=== PATIENT | female | born 1990 | race Caucasian/White ===

== ENCOUNTER 2019-06-03 11:18 | Emergency (ER) | payer MEDICARE, OTHER ==
[~2019-06-03] VITALS: Ht 154.9 cm; Wt 77.1 kg
[~2019-06-03 11:18] MED LIST: ACET500 PO; ALBU90OI INH; AMOX500 PO; ARIP10 PO; BCP; BUPR100 PO; CEPH500 PO; CLON.1 PO; CLON.2; CLON.3 PO; CLOT1TC TOP; CODACE30 PO; CYCL10 PO; DIPH25; DOCU100 PO; ESCI20; Effexor PO; FERGLU300 PO; FLUC150A PO; Flagyl500 MG PO; Flomax0.4 MG PO; HYDACE5 PO; HYDGUAL120 PO; HYDHCL10; HYDPAM25; HYDPAM25 PO; HYDPAM50 PO; IBUP800 PO; LAMO100 PO; LAMO25; LAMO25 PO; LEVFLO500 PO; LITH300C; LITH300C PO; LITH300CA; Lamictal PO; METO5A; MULVITMINE PO; Motrin600 MG PO; NAPR500 PO; NAPR550 PO; NEOCOLOTSU OT; NEOPOLHCSU LEFTEAR; OMEP20ER PO; OXYB5 PO; PHENA200 PO; POLY17UD PO; PRED10 PO; Percocet 5-3251 EACH PO; Pyridium100 MG PO; RANI150 PO; RISP1; RISP1 PO; RXCODACET PO; RXCYCL10 PO; RXNAPNA550 PO; SERT50 PO; SULTRIDS PO; TRAM50 PO; TRAZ150T57 PO; TRAZ50; TRIM100 PO; Ultram50 MG PO; VENL150ER PO; VENL25; VENL25 PO; VENL75ER; [UNRECOGNIZED DRUG - CODE] PO; [UNRECOGNIZED DRUG - OTHER]; [UNRECOGNIZED DRUG - REMARK]; [UNRECOGNIZED DRUG - REMARK]; [UNRECOGNIZED DRUG - REMARK]
[2019-06-03] MEDS ORDERED: Bactrim Ds Tab1 EACH PO (11:42)
== END 2019-06-03 11:49 | disposition home or self-care (01) ==
LOC: ER 11:18
DX: H60.11 Cellulitis of right external ear (principal); H60.01 Abscess of right external ear; Z88.1 Allergy status to other antibiotic agents; Z88.8 Allergy status to other drugs, medicaments and biological substances; Z88.0 Allergy status to penicillin; Z79.899 Other long term (current) drug therapy; F31.9 Bipolar disorder, unspecified; F17.200 Nicotine dependence, unspecified, uncomplicated
CPT/HCPCS: 99282

== ENCOUNTER 2019-11-19 17:17 | Emergency (ER) | payer MEDICARE, OTHER ==
[~2019-11-19] VITALS: Ht 154.9 cm; Wt 79.4 kg
[~2019-11-19 17:17] MED LIST changes: +Bactrim Ds Tab1 EACH PO
[2019-11-19 17:40] LABS: Source, Urine Clean Catch
[2019-11-19] MEDS ORDERED: VENL75ER PO (17:41)
[2019-11-19] MEDS ORDERED: CLON.3 (17:42)
[2019-11-19] MEDS ORDERED: LAMO100 PO (17:42)
[2019-11-19] MEDS ORDERED: HYDHCL25 (17:43)
[2019-11-19 17:50] LABS: BASOPHILS ABSOLUTE AUTO 0.07 K/mm3 (0.00-0.23); BASOPHILS PERCENT AUTO 1 % (0-2); EOSINOPHILS ABSOLUTE AUTO 0.28 K/mm3 (0.00-0.68); EOSINOPHILS PERCENT AUTO 2 % (0-6); Hematocrit 44.2 % (33.0-51.0); Hemoglobin 14.4 g/dL (11.5-16.0); IMMATURE GRAN ABSOLUTE AUTO 0.05 K/mm3 (0.00-0.10); IMMATURE GRAN PERCENT AUTO 0 % (0-1); LYMPHOCYTES ABSOLUTE AUTO 3.27 K/mm3 (0.84-5.20); LYMPHOCYTES PERCENT AUTO 25 % (21-46); MONOCYTES ABSOLUTE AUTO 0.68 K/mm3 (0.16-1.47); MONOCYTES PERCENT AUTO 5 % (4-13); Mean Corpuscular HGB 29.1 pg (26.0-34.0); Mean Corpuscular HGB Conc 32.6 g/dL (31.5-36.5); Mean Corpuscular Volume 89 fL (80-100); Mean Platelet Volume 9.8 fL (9.1-12.4); NEUTROPHILS ABSOLUTE AUTO 8.81 K/mm3 (1.96-9.15); NEUTROPHILS PERCENT AUTO 67 % (41-73); Platelet Count 384 K/mm3 (150-400); Red Blood Cell Count 4.95 M/mm3 (3.80-5.20); White Blood Cell Count 13.16 K/mm3 (4.00-11.30)
[2019-11-19 17:59] LABS: Bilirubin, Urine Neg (Neg); Blood, Urine 1+ (Neg); Glucose Qualitative, Urine Neg (Neg); Ketones, Urine Neg (Neg); Leukocyte Esterase, Urine 2+ (Neg); Nitrite, Urine Neg (Neg); Protein, Urine Neg (Neg); Urobilinogen, Urine NORM (Normal)
[2019-11-19 18:08] LABS: Alanine Aminotransfer (ALT/SGP 35 U/L (12-78); Albumin, Blood 4.1 g/dL (3.4-5.0); Alk Phos 122 U/L (50-136); Anion Gap 5 mmol/L (6-16); Aspartate Aminotrans (AST/SGOT 15 U/L (12-37); Bilirubin, Total 0.4 mg/dL (0.1-1.0); Blood Urea Nitrogen 6 mg/dL (8-24); Bun/Creatinine Ratio 11.9 (12.0-20.0); CO2, Blood 26 mmol/L (21-32); Calcium, Blood 9.3 mg/dL (8.5-10.1); Chloride, Blood 105 mmol/L (98-108); Creatinine, Blood 0.51 mg/dL (0.40-1.00); Globulin, Blood 4.1 g/dL (2.2-4.0); Glomerular Filtration Rate >60 (60-); Glucose, Blood 94 mg/dL (70-99); Potassium, Blood 3.7 mmol/L (3.5-5.5); Sodium, Blood 136 mmol/L (136-145); Total Protein, Blood 8.2 g/dL (6.4-8.2)
[2019-11-19 18:15] LABS: Appearance, Urine Hazy (Clear); Color, Urine Pale Yellow (P-Yellow)
[2019-11-19 18:16] LABS: Red Blood Cells, Urine 0-2 /hpf (0-2); Squamous Epithelial Cells Mod /hpf (Few)
[2019-11-19 18:17] LABS: Bacteria Few /hpf
== END 2019-11-19 21:12 | disposition home or self-care (01) ==
LOC: ER 17:17
PROVIDERS: Physician Assistant
DX: T83.9XXA Unspecified complication of genitourinary prosthetic device, implant and graft, initial encounter (principal); N75.0 Cyst of Bartholin's gland; N83.209 Unspecified ovarian cyst, unspecified side; F31.9 Bipolar disorder, unspecified; F41.9 Anxiety disorder, unspecified; F17.290 Nicotine dependence, other tobacco product, uncomplicated; Z88.0 Allergy status to penicillin; Z88.1 Allergy status to other antibiotic agents
CPT/HCPCS: 74018; 76830; 76856; 80053; 81001; 81025; 83690; 85025; 87086; 99284-25

== ENCOUNTER 2020-04-21 19:52 | Emergency (ER) | payer MEDICARE, OTHER ==
[~2020-04-21] VITALS: Ht 154.9 cm; Wt 79.4 kg
[~2020-04-21 19:52] MED LIST changes: +CLON.3; +HYDHCL25; +VENL75ER PO
[2020-04-21] MEDS ORDERED: Percocet 5-3251 EACH PO (22:34)
== END 2020-04-21 22:47 | disposition home or self-care (01) ==
LOC: ER 19:52
DX: S20.211A Contusion of right front wall of thorax, initial encounter (principal); F31.9 Bipolar disorder, unspecified; F41.9 Anxiety disorder, unspecified; F17.290 Nicotine dependence, other tobacco product, uncomplicated; Z88.1 Allergy status to other antibiotic agents; Z88.0 Allergy status to penicillin; Z88.8 Allergy status to other drugs, medicaments and biological substances; Z79.899 Other long term (current) drug therapy; W10.9XXA Fall (on) (from) unspecified stairs and steps, initial encounter; Y93.89 Activity, other specified
CPT/HCPCS: 71101; 99283-25; A9270

== ENCOUNTER 2021-03-02 14:46 | Inpatient (IN) | payer MEDICARE, OTHER ==
[~2021-03-02] VITALS: Ht 154.9 cm; Wt 86.2 kg
[~2021-03-02 14:46] MED LIST changes: -CLON.3; -HYDHCL25; +HYDHCL25 PO
[2021-03-02 15:11] LABS: BASOPHILS ABSOLUTE AUTO 0.02 K/mm3 (0.00-0.23); BASOPHILS PERCENT AUTO 0 % (0-2); EOSINOPHILS PERCENT AUTO 0 % (0-6); Hematocrit 41.3 % (33.0-51.0); Hemoglobin 13.8 g/dL (11.5-16.0); IMMATURE GRAN ABSOLUTE AUTO 0.04 K/mm3 (0.00-0.10); IMMATURE GRAN PERCENT AUTO 0 % (0-1); LYMPHOCYTES PERCENT AUTO 17 % (21-46); MONOCYTES ABSOLUTE AUTO 0.38 K/mm3 (0.16-1.47); MONOCYTES PERCENT AUTO 4 % (4-13); Mean Corpuscular HGB 28.9 pg (26.0-34.0); Mean Corpuscular HGB Conc 33.4 g/dL (31.5-36.5); Mean Corpuscular Volume 86 fL (80-100); Mean Platelet Volume 10.5 fL (9.1-12.4); NEUTROPHILS ABSOLUTE AUTO 7.76 K/mm3 (1.96-9.15); NEUTROPHILS PERCENT AUTO 78 % (41-73); Platelet Count 230 K/mm3 (150-400); RDW Coefficient Variation 12.9 % (11.7-14.2); RDW Standard Deviation 40.9 fL (35.1-46.3); Red Blood Cell Count 4.78 M/mm3 (3.80-5.20)
[2021-03-02 15:28] LABS: Alanine Aminotransfer (ALT/SGP 117 U/L (12-78); Albumin, Blood 3.2 g/dL (3.4-5.0); Albumin/Globulin Ratio 0.7 (0.8-1.8); Alk Phos 114 U/L (50-136); Anion Gap 9 mmol/L (6-16); Aspartate Aminotrans (AST/SGOT 81 U/L (12-37); Bilirubin, Total 0.7 mg/dL (0.1-1.0); Blood Urea Nitrogen 7 mg/dL (8-24); CO2, Blood 25 mmol/L (21-32); Calcium, Blood 8.6 mg/dL (8.5-10.1); Chloride, Blood 101 mmol/L (98-108); Creatinine, Blood 0.59 mg/dL (0.40-1.00); Globulin, Blood 4.5 g/dL (2.2-4.0); Glomerular Filtration Rate >60 (60-); Glucose, Blood 117 mg/dL (70-99); Potassium, Blood 3.3 mmol/L (3.5-5.5); Sodium, Blood 135 mmol/L (136-145); Total Protein, Blood 7.7 g/dL (6.4-8.2)
[2021-03-02 17:25] LABS: CHOL/HDL RATIO 2.9; Cholesterol 119 mg/dL (50-200); HDL Cholesterol 41 mg/dL (>39); LDL/HDL RATIO 1.4; Low Density Lipoprotein Chol 57 mg/dL (0-110); Triglycerides 103 mg/dL (30-140); Very Low Density Lipoprot Chol 20 mg/dL (6-28)
--- NOTE | 2021-03-02 18:52 | NUR ---
PT ARRIVED ON MEDICAL FLOOR AT 1840, TUCKED IN, SBA TO BR. ON 4L OXYGEN
--- NOTE | 2021-03-02 20:02 | NUR ---
ADMIT: PATIENT IS ADMITTED TO THE UNIT WITH DROPTEL ISOLATION FOR COVID. VSS. PATIENT REPORTING HEAD ACHE AND NAUSEA. REFUSING TYLENOL ZOFRAN WILL BE GIVEN FOR NAUSEA. PATIENT IS ORIENTED TO ROOM AND CALL LOPEZ.
[2021-03-03 05:59] LABS: Anion Gap 7 mmol/L (6-16); Blood Urea Nitrogen 10 mg/dL (8-24); Bun/Creatinine Ratio 17.2 (12.0-20.0); CO2, Blood 26 mmol/L (21-32); Calcium, Blood 8.8 mg/dL (8.5-10.1); Chloride, Blood 104 mmol/L (98-108); Creatinine, Blood 0.58 mg/dL (0.40-1.00); Glomerular Filtration Rate >60 (60-); Glucose, Blood 94 mg/dL (70-99); Potassium, Blood 3.8 mmol/L (3.5-5.5); Sodium, Blood 137 mmol/L (136-145)
--- NOTE | 2021-03-03 07:56 | NUR ---
SHIFT SUMMARY: PATIENT IS A&OX4, VSS, SOB WITH ACTIVITY ON 4L VIA NC. SATS ARE MAINTAINED BETWEEN 91- 95%. PATIENT IS ON DROPPLET PRECAUTIONS FOR COVID. LUNG SOUNDS ARE DIMINISHED. PATIENT WAS GIVEN ZOFRAN FOR NAUSEA WITH GOOD EFFECT AND TYLENOL FOR HEAD ACHE WITH GOOD EFFECT. POOR PO INTAKE AND IS VOIDING WITHOUT DIFFICULTY.
--- NOTE | 2021-03-03 16:57 | NUR ---
SHIFT SUMMARY PT ALERT AND ORIENTED WHEN AWAKE THROUGHOUT SHIFT. TOOK A COUPLE NAPS. BREATHING IS SHALLOW AND GUARDED. DEEP BREATHS ARE PAINFUL. TOLERATING O2 VIA NC AT 3L KEEPING SATS ABOVE 94%. TOLERATING SMALL AMOUNT OF REGULAR DIET AND FLUIDS. SBA TO BATHROOM DUE TO WEAKNESS. IV REMDESIVIR. PLAN TO STAY UNTIL TOLERATING 2L O2 VIA NC.
--- NOTE | 2021-03-04 01:56 | NUR ---
ASSISTED TO THE BATHROOM TO VOID. O2 PER NC REMAINS AT 4L/MIN. INTERMITTENTLY DROPS TO THE MID 80'S (SATS), WHEN ASSESSED AT BEDSIDE, VOICED SHE HAD ROLLED OVER ONTO THE O2 TUBING. CALL LIGHT IN REACH. ISOLATION PRECAUTIONS MAINTAINED
--- NOTE | 2021-03-04 03:42 | NUR ---
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 FEW EPISODES OF DESATURATION INTO THE 80'S. WHEN NURSE ASSESSED PT AT BEDSIDE, PT VOICED SHE HAD ROLLED OVER ON HER O2 TUBING AND CAUSED THE DECREASE IN O2. ASYMPTOMATIC. WAS ASSISTED UP TO THE BATHROOM X 1, EASILY DESATED INTO THE 80'S WELL. WAS ASSISTED BACK TO BED, AND IT TOOK A FEW MINUTES TO GET BACK INTO THE 90'S. WAS INSTRUCTED TO TAKE DEEP BREATHS THROUGH HER NC. CURRENTLY RESTING WITHOUT NOTED DISTRESS. CALL LIGHT IN REACH. ISOLATION PRECAUTIONS MAINTAINED.
--- NOTE | 2021-03-04 16:38 | NUR ---
SHIFT SUMMARY PT A/O X4; PLEASANT BUT QUITE FATIGUED THIS SHIFT. PT IN ISOLATION FOR COVID AND RECEIVED ONE DOSE OF REMDESIVIR THIS SHIFT. SHE IS ON 4 LITERS O2 AND HAS BEEN SATTING IN THE 'S. PT DESATS AND BECOMES DYSPNEIC WHEN SHE GETS UP. POOR APPETITE NOTED AND HAS BEEN SLEEPING FOR THE MAJORITY OF THE SHIFT. VSS. RESTING COMFORTABLY IN BED WITH HER CALL LIGHT IN REACH.
--- NOTE | 2021-03-05 15:53 | NUR ---
PATIENT HAS BEEN VERY LETHARGIC AND SLEEPING MAJORITY OF THE DAY. MINIMAL URINARY OUTPUT. O2 SATS HAVE BEEN DOING WELL AND I HAVE BEEN ABLE TO WEAN PATIENT FROM 4L TO 2L O2 NC AND SHE IS CURRENTLY MAINTAINING AT 97%. DYSPNIC WITH EXERTION. NO COMPLAINTS OF PAIN TO ME. DOSE OF IV REMDESIVIR ADMINISTERED THIS AFTERNOON WITHOUT S/SX ADVERSE REACTIONS NOTED OR REPORTED. PATIENT CALLS APPROPRIATELY FOR STAFF ASSIST NEEDED. CALL LIGHT WITHIN REACH.
--- NOTE | 2021-03-05 23:33 | NUR ---
AWAKE EARLIER AT SHIFT CHANGE. VOICED LETHARGIC, NOT WANTING TO DRINK MUCH FLUIDS. DISCUSSED NEED FOR FLUIDS FOR KIDNEY FUNCTIONS, ETC. VOICED AGREEMENT AND AFTER ZOFRAN FOR NAUSEA, TOLERATING FLUIDS. CALL LIGHT IN REACH. O2 PER NC.
[2021-03-06 05:05] LABS: Appearance, Urine Clear (Clear); Bilirubin, Urine Neg (Neg); Blood, Urine Neg (Neg); Color, Urine Amber (P-Yellow); Glucose Qualitative, Urine Neg (Neg); Ketones, Urine Neg (Neg); Leukocyte Esterase, Urine 2+ (Neg); Nitrite, Urine Neg (Neg); Protein, Urine 1+ (Neg); Specific Gravity, Urine 1.015 (1.003-1.022); Urobilinogen, Urine 2+ (Normal); pH, Urine 6.5 (5.0-8.0)
[2021-03-06 05:10] LABS: Red Blood Cells, Urine 0-2 /hpf (0-2)
[2021-03-06 05:11] LABS: Amorphous Light (0-Heavy); Bacteria Mod /hpf; Mucus Light (0-Heavy); Squamous Epithelial Cells Few /hpf (Few)
--- NOTE | 2021-03-06 06:38 | NUR ---
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 WAS QUITE LETHARGIC AT SHIFT COMMENCE, NOT WANTING TO DRINK/EAT. BUT AFTER ANTIEMETIC ADMINISTERED, HAS BEEN MORE RECEPTIVE TO FLUIDS, ETC. CALL LIGHT IN REACH. O2 PER NC, CONT PULSE OX IN THE 90'S. PRECAUTIONS MAINTAINED.
--- NOTE | 2021-03-06 14:56 | NUR ---
PATIENT REMAINS ON ISOLATION FOR COVID; SHE HAS BEEN RESTING TO BUILD UP HER STRENGTH. VITALS HAVE BEEN STABLE TODAY. ATTEMPTED TO REMOVE THE PATIENT FROM O2 THIS MORNING HOWEVER SHE WAS STRUGGLING TO MAINTAIN SO I PLACED 1.5L O2 NC BACK ON PATIENT AND SHE IS MAINTAINING IN THE HIGH 90s AT THIS TIME. SHE STATES SHE IS FEELING MUCH BETTER, BUT STILL BECOMES DYSPNIC UPON EXERSION. FINISHED LAST DOSE OF IV REMDESIVIR THIS AFTERNOON. CALLS FOR STAFF ASSIST APPROPRIATELY NEEDED. CALL LIGHT WITHIN REACH.
--- NOTE | 2021-03-06 22:59 | NUR ---
ASSUMED CARE. AOX3, INDEPENDENT IN THE ROOM. LUNG SOUNDS CLEAR ON THE RIGHT, DIMINISHED ON THE LLL. DENIES PRODUCTIVE COUGH. COUGH OCCATIONAL DRY. STATES SHE STILL GETS PAIN WHEN SHE TAKES A DEEP BREATH BUT IT IS IMPROVING. ON 2 LITERS OF O2 HOLDING ABOVE 90%. TASTE IS IMPROVING. APPETITE IS BETTER THEN YESTERDAY. TRYING TO MAKE SURE SHE IS STAYING HYDRATED. SLEEPING ALOT SHE STATES. BUT FEELS SHE IS GETTING BETTER. CALL LIGHT IS IN REACH. WILL CONTINUE TO MONITOR.
--- NOTE | 2021-03-07 05:39 | NUR ---
SHIFT SUMMARY: AOX3, INDEPENDENT IN THE ROOM. DYSPNEA WITH EXERTION, RECOVERS QUICK. SATS >90% ON 2 LITERS. DOES END UP WORKING HARD TO BREATH WHEN OFF THE O2. FATIQUED, WEAK AND LOW IN ENERGY. DOES STATE IT IS BETTER THEN IT HAS BEEN. HAS HAD SOME INCREASE IN HER TASTE BUDS AND APPETITE BUT NOT BACK TO NORMAL. STILL SLEEPING ALOT. CHEST DISCOMFORT HAS IMPROVED WHEN SHE TAKES A DEEP BREATH. DISCUSSED POSSIBLE FLUTTER VALVE TO TAKE HOME OR INSPIROMTER. WILL PASS ON TO DAY SHIFT. NO OTHER ACUTE CHANGES. CALL LIGHT IS IN REACH.
[2021-03-07] MEDS ORDERED: DEXA6 PO (12:40)
--- NOTE | 2021-03-07 14:35 | NUR ---
DISCHARGE PT DISCHARGED AT 1435. PT EDUCATED ON NEW MED & FOLLOW UP APPOINTMENT INSTRUCTIONS. PT STATES SHE UNDERSTANDS AND DOES NOT NEED ANY FURTHER INSTRUCTION. PT WHEELED OUT BY THIS RN. DRIVEN HOME BY BOYFRIEND. NO ACUTE CHANGES IN ASSESSMENT PRIOR TO DC. PT SATING IN THE 90S T/O THE DAY ON RA.
== END 2021-03-07 14:35 | disposition home or self-care (01) | DRG 177 ==
LOC: ER 14:46 → MEDS 16:50
PROVIDERS: Emergency Medicine; Internal Medicine; ADMIT Internal Medicine
PROC: 8E0ZXY6 Isolation (ICD-10-PCS; principal; 2021-03-02)
PROC: XW033E5 Introduction of Remdesivir Anti-infective into Peripheral Vein, Percutaneous Approach, New Technology Group 5 (ICD-10-PCS; 2021-03-02)
DX: U07.1 COVID-19 (principal); J12.82 Pneumonia due to coronavirus disease 2019; J96.01 Acute respiratory failure with hypoxia; F41.8 Other specified anxiety disorders; E78.5 Hyperlipidemia, unspecified; E87.6 Hypokalemia; K59.00 Constipation, unspecified; F31.9 Bipolar disorder, unspecified; R73.03 Prediabetes; E66.9 Obesity, unspecified; Z68.35 Body mass index [BMI] 35.0-35.9, adult; Z88.0 Allergy status to penicillin; Z88.1 Allergy status to other antibiotic agents; Z87.891 Personal history of nicotine dependence; Z79.899 Other long term (current) drug therapy
CPT/HCPCS: 36415; 71045; 80048; 80053; 80061; 81001; 83036; 85025; 87086; 93005; 93010; 94640; 94664; 94762; 96374; 99282; 99285-25; A9270; J1650; J2405; J7030

== ENCOUNTER 2021-03-24 00:45 | Emergency (ER) | payer MEDICARE, OTHER ==
[~2021-03-24] VITALS: Ht 154.9 cm; Wt 90.7 kg
[~2021-03-24 00:45] MED LIST changes: +DEXA6 PO
[2021-03-24 01:11] LABS: BASOPHILS ABSOLUTE AUTO 0.06 K/mm3 (0.00-0.23); BASOPHILS PERCENT AUTO 0 % (0-2); EOSINOPHILS ABSOLUTE AUTO 0.13 K/mm3 (0.00-0.68); EOSINOPHILS PERCENT AUTO 1 % (0-6); Hematocrit 45.5 % (33.0-51.0); IMMATURE GRAN ABSOLUTE AUTO 0.11 K/mm3 (0.00-0.10); IMMATURE GRAN PERCENT AUTO 1 % (0-1); LYMPHOCYTES ABSOLUTE AUTO 2.48 K/mm3 (0.84-5.20); LYMPHOCYTES PERCENT AUTO 18 % (21-46); MONOCYTES ABSOLUTE AUTO 0.76 K/mm3 (0.16-1.47); MONOCYTES PERCENT AUTO 6 % (4-13); Mean Corpuscular HGB 29.4 pg (26.0-34.0); Mean Corpuscular Volume 89 fL (80-100); NEUTROPHILS ABSOLUTE AUTO 9.93 K/mm3 (1.96-9.15); NEUTROPHILS PERCENT AUTO 74 % (41-73); Platelet Count 353 K/mm3 (150-400); RDW Coefficient Variation 14.1 % (11.7-14.2); RDW Standard Deviation 45.3 fL (35.1-46.3); White Blood Cell Count 13.47 K/mm3 (4.00-11.30)
[2021-03-24 01:28] LABS: Alanine Aminotransfer (ALT/SGP 130 U/L (12-78); Alk Phos 122 U/L (50-136); Anion Gap 11 mmol/L (6-16); Aspartate Aminotrans (AST/SGOT 56 U/L (12-37); Bilirubin, Total 0.4 mg/dL (0.1-1.0); Blood Urea Nitrogen 4 mg/dL (8-24); Bun/Creatinine Ratio 6.6 (12.0-20.0); CO2, Blood 20 mmol/L (21-32); Calcium, Blood 8.4 mg/dL (8.5-10.1); Chloride, Blood 111 mmol/L (98-108); Creatinine, Blood 0.61 mg/dL (0.40-1.00); Ethanol (Alcohol), Blood, Med 271 mg/dL; Globulin, Blood 4.1 g/dL (2.2-4.0); Glomerular Filtration Rate >60 (60-); Glucose, Blood 151 mg/dL (70-99); Potassium, Blood 3.5 mmol/L (3.5-5.5); Salicylate <1.7 mg/dL (2.8-20.0); Sodium, Blood 142 mmol/L (136-145); Total Protein, Blood 8.1 g/dL (6.4-8.2)
[2021-03-24 01:41] LABS: Acetaminophen, Random <2.0 ug/mL (10.0-30.0)
== END 2021-03-24 04:04 | disposition home or self-care (01) ==
LOC: ER 00:45
PROVIDERS: Emergency Medicine
DX: F10.129 Alcohol abuse with intoxication, unspecified (principal); F17.290 Nicotine dependence, other tobacco product, uncomplicated; Z88.1 Allergy status to other antibiotic agents; Z88.0 Allergy status to penicillin; Z79.899 Other long term (current) drug therapy
CPT/HCPCS: 36415; 80053; 85025; 96374; 99284-25; G0480; J2405

== ENCOUNTER 2021-08-04 06:46 | Emergency (ER) | payer MEDICARE, OTHER ==
[~2021-08-04] VITALS: Ht 154.9 cm; Wt 81.7 kg
[2021-08-04] MEDS ORDERED: HYDR1TAB94 PO (07:59)
== END 2021-08-04 08:15 | disposition home or self-care (01) ==
LOC: ER 06:46
DX: M25.511 Pain in right shoulder (principal); E78.5 Hyperlipidemia, unspecified; F17.290 Nicotine dependence, other tobacco product, uncomplicated; Z88.1 Allergy status to other antibiotic agents; Z88.0 Allergy status to penicillin; Z79.899 Other long term (current) drug therapy; Z86.16 Personal history of COVID-19
CPT/HCPCS: 71045; 73030; 99283-25; A9270

== ENCOUNTER → 2021-08-22 | Outpatient (CLI) | payer MEDICARE, OTHER ==
[~2021-08-22] MED LIST changes: +HYDR1TAB94 PO
== END ==
LOC: LAB 11:04 → LAB SHORT 11:04
DX: T63.301A Toxic effect of unspecified spider venom, accidental (unintentional), initial encounter (principal)
CPT/HCPCS: 87070; 87205

== ENCOUNTER 2021-10-02 20:44 | Emergency (ER) | payer MEDICARE, OTHER ==
[~2021-10-02] VITALS: Ht 154.9 cm; Wt 88.5 kg
== END 2021-10-02 21:38 | disposition left against medical advice (07) ==
LOC: ER 20:44
DX: R22.0 Localized swelling, mass and lump, head (principal); Z53.21 Procedure and treatment not carried out due to patient leaving prior to being seen by health care provider
CPT/HCPCS: 70450; 70486; 99284-25

== ENCOUNTER → 2022-09-11 | Outpatient (CLI) | payer MEDICARE, OTHER ==
[2022-09-16 13:09] LABS: HPV 16 Negative (Negative); HPV 18 Negative (Negative); HPV OTHER HR TYPES Negative (Negative)
== END | disposition home or self-care (01) ==
LOC: LAB 17:13 → LAB SHORT 17:13
PROVIDERS: Registered Nurse
DX: Z01.419 Encounter for gynecological examination (general) (routine) without abnormal findings (principal)
CPT/HCPCS: 87624; G0123

== ENCOUNTER → 2025-05-18 | Outpatient (CLI) | payer MEDICARE, OTHER ==
[2025-05-18 20:36] LABS: Chlamydia Trachomatis Urine NOT DETECTED (NOT DETECT); Neisseria Gonorrhoea Urine NOT DETECTED (NOT DETECT)
== END ==
LOC: LAB 16:52 → LAB SHORT 16:52
PROVIDERS: Family Medicine
DX: Z34.01 Encounter for supervision of normal first pregnancy, first trimester (principal); R30.0 Dysuria
CPT/HCPCS: 87086; 87491; 87591

== ENCOUNTER → 2025-06-05 | Outpatient (CLI) | payer MEDICARE, OTHER ==
[2025-06-05 11:46] LABS: Protein, Urine Quantitative 10.4 mg/dL (0.0-11.9)
== END ==
LOC: LAB SHORT 10:21 → LAB 10:21
PROVIDERS: Family Medicine
DX: Z34.01 Encounter for supervision of normal first pregnancy, first trimester (principal)
CPT/HCPCS: 81050; 84156

== ENCOUNTER 2025-07-02 14:16 | Emergency (ER) | payer MEDICARE, OTHER ==
[~2025-07-02] VITALS: Ht 154.9 cm; Wt 81.7 kg
[2025-07-02 17:16] VITALS: BP 126/71
== END 2025-07-02 17:17 | disposition home or self-care (01) ==
LOC: ER 14:16
DX: O46.92 Antepartum hemorrhage, unspecified, second trimester (principal); Z3A.15 15 weeks gestation of pregnancy; Z88.0 Allergy status to penicillin; Z88.8 Allergy status to other drugs, medicaments and biological substances; Z79.899 Other long term (current) drug therapy
CPT/HCPCS: 76815; 76817; 84702; 86900; 86901; 99284-25